=== PATIENT | female | born 1995 | race Caucasian/White ===

== ENCOUNTER 2020-10-13 17:57 | Emergency (ER) | payer BC, OTHER ==
--- NOTE | 2020-10-13 20:07 | EDM.PDOC ---
ED HPI GENERAL MEDICAL PROBLEM - General Chief Complaint: PUBLIC HEALTH DOCTOR Problem Stated Complaint: 5 WEEKS PREG CRAMPING AND BLEEDING Time Seen by Provider: 10/13/20 19:51 Source of Information: Reports: Patient, Family () History Limitations: Reports: No Limitations - History of Present Illness INITIAL COMMENTS - FREE TEXT/NARRATIVE: Mrs. Elliott is a very pleasant 24-year-old woman who now presents the ED stating that she underwent in vitro fertilization on 09/22/2020, with subsequent positive home test. She states that she developed suprapubic pelvic cramps and vaginal bleeding last night, 10/12/2020. Initially she had actual bleeding, which has since become spotting, however, the pelvic cramps have persisted. Her pain feels better if she lies in the left decubitus position, worse if she is laughing. She also states that she developed the sensation of urinary urgency around 15:00 this afternoon. No prior similar symptoms. She is G1, P0. Here in the ED, the patient is found to be hemodynamically stable, afebrile, saturating 100% on room air. She appears to be relatively comfortable, in no acute distress. Prior to last night, the patient denies having a recent fever, chills, sore throat, ear pain, nasal or sinus congestion, cough, dyspnea, chest pain, palpitations, nausea, vomiting, constipation, diarrhea, abdominal pain, urinary symptoms, recent weight gain or weight loss, recent bloody bowel movements or black bowel movements, recent joint aches, headaches, or rashes. The patient does not have a PCP. Her Reproductive Endocrinology and Fertility specialist is Dr. Jacquelyn Worthy, at [place], [place]. She has not received a COVID vaccination. Pelvic Pain Score (Numeric/FACES): 4 - Related Data Allergies Allergy/AdvReac Type Severity Reaction Status Date / Time No Known Allergies Allergy Verified 10/13/20 18:39 Home Meds: Home Meds . [No Known Home Meds] 10/13/20 [History] Past Medical History PUBLIC HEALTH DOCTOR History: Reports: Polycystic Ovaries - Past Surgical History HEENT Surgical History: Reports: Myringotomy w Tube(s) (bilateral), Oral Surgery (dental implant) Female Surgical History: Reports: Other (See Below) (Egg retrieval and implantation) Social & Family History - Tobacco Use Tobacco Use Status *Q: Never Tobacco User - Alcohol Use Alcohol Use History: No - Recreational Drug Use Recreational Drug Use: No - Living Situation & Occupation Living situation: Reports: , with Spouse Occupation: Unemployed ED ROS GENERAL - Review of Systems Review Of Systems: Comprehensive ROS is negative, except as noted in HPI. ED EXAM - Physical Exam Exam: See Below Exam Limited By: No Limitations General Appearance: Alert, WD/WN, No Apparent Distress Eye Exam: Bilateral Eye: EOMI, Normal Inspection Ears: Normal External Exam, Hearing Grossly Normal Nose: Normal Inspection Throat/Mouth: Normal Inspection, Normal Lips, Normal Voice, No Airway Compromise Head: Atraumatic, Normocephalic Neck: Normal Inspection, Full Range of Motion Respiratory/Chest: No Respiratory Distress, Lungs Clear, Normal Breath Sounds, No Accessory Muscle Use Cardiovascular: Normal Peripheral Pulses, Regular Rate, Rhythm, No Edema, No Gallop, No JVD, No Murmur, No Rub GI/Abdominal Exam: Normal Bowel Sounds, Soft, No Organomegaly, No Distention, No Abnormal Bruit, No Mass, Tender (Suprapubically only. Nontender elsewhere.) (Female) Exam: Other (Cervical os closed. Small amount of blood at the cervical os, but no active bleeding. No vaginal lesions.) Back Exam: Normal Inspection, Full Range of Motion, NT Extremities: Normal Inspection, Normal Range of Motion, No Pedal Edema, Normal Capillary Refill Neurological: Alert, Oriented, Normal Cognition, No Motor/Sensory Deficits Psychiatric: Normal Affect Skin Exam: Warm, Dry, Intact, Normal Color, No Rash Course - Vital Signs Last Recorded V/S: Last Vital Signs Temp 36.7 C 10/13/20 18:34 Pulse 91 10/13/20 18:34 Resp 18 10/13/20 18:34 BP 122/71 10/13/20 18:34 Pulse Ox 100 10/13/20 18:34 - Orders/Labs/Meds Orders: Active Orders 24 hr Category Date Time Status OB Transvaginal [US] Stat Exams 10/13/20 19:54 Taken Labs: Laboratory Tests 10/13/20 10/13/20 10/13/20 Range/Units 20:10 20:15 20:15 WBC 14.84 H (3.98-10.04) K/mm3 RBC 4.61 (3.98-5.22) M/mm3 Hgb 13.3 (11.2-15.7) gm/dl Hct 41.1 (34.1-44.9) % MCV 89.2 (79.4-94.8) fl MCH 28.9 (25.6-32.2) pg MCHC 32.4 (32.2-35.5) g/dl RDW Std Deviation 43.9 (36.4-46.3) fL Plt Count 374 H (182-369) K/mm3 MPV 10.0 (9.4-12.3) fl Neutrophils % (Manual) 70 H (40-60) % Band Neutrophils % 0 (0-10) % Lymphocytes % (Manual) 27 (20-40) % Atypical Lymphs % 0 % Monocytes % (Manual) 3 (2-10) % Eosinophils % (Manual) 0 L (0.7-5.8) % Basophils % (Manual) 0 L (0.1-1.2) Toxic Granulation Few Platelet Estimate Adequate RBC Morph Comment Normal Sodium 139 (136-145) mEq/L Potassium 3.8 (3.5-5.1) mEq/L Chloride 104 (98-107) mEq/L Carbon Dioxide 23 (21-32) mEq/L Anion Gap 15.8 H (5-15) BUN 8 (7-18) mg/dL Creatinine 0.6 (0.55-1.02) mg/dL Est Cr Clr Drug Dosing 123.77 mL/min Estimated GFR (MDRD) > 60 (>60) mL/min BUN/Creatinine Ratio 13.3 L (14-18) Glucose 85 (70-99) mg/dL Calcium 8.5 (8.5-10.1) mg/dL Total Bilirubin 0.2 (0.2-1.0) mg/dL AST 19 (15-37) U/L ALT 31 (14-59) U/L Alkaline Phosphatase 82 (46-116) U/L Total Protein 7.6 (6.4-8.2) g/dl Albumin 3.0 L (3.4-5.0) g/dl Globulin 4.6 gm/dL Albumin/Globulin Ratio 0.7 L (1-2) HCG, Quant 6734.0 mIU/mL Urine Color Yellow (Yellow) Urine Appearance Clear (Clear) Urine pH 6.0 (5.0-8.0) Ur Specific Gomer 1.025 (1.005-1.030) Urine Protein Negative (Negative) Urine Glucose (UA) Negative (Negative) Urine Ketones 2+ H (Negative) Urine Occult Blood 3+ H (Negative) Urine Nitrite Negative (Negative) Urine Bilirubin Negative (Negative) Urine Urobilinogen 0.2 (0.2-1.0) Ur Leukocyte Esterase Negative (Negative) Urine RBC 5-10 H (0-5) /hpf Urine WBC 0-5 (0-5) /hpf Ur Squamous Epith Cells 5-10 H (0-5) /hpf Urine Bacteria Many H (FEW) /hpf Urine Mucus Moderate H (FEW) /hpf - Re-Assessments/Exams Free Text/Narrative Re-Assessment/Exam: 10/13/20 20:03 As above, the patient developed pelvic cramps and vaginal spotting last night, in the setting of being approximately 5 weeks gestation following in vitro fertilization on 09/22/2020. The pelvic cramps have been waxing and waning, and she feels better if she lies in the left decubitus position, worse with laughing. On physical exam, she has some suprapubic tenderness, otherwise, her examination is unremarkable. I have ordered a work-up that includes several blood tests, a urinalysis by clean-catch, and a transvaginal ultrasound. The patient will be taken to our gynecology examination room so that I can inspect her cervix. 10/13/20 21:14 On pelvic examination, the cervical os is closed. There is a small amount of blood at the cervical os, but no active bleeding. No vaginal lesions seen. 10/13/20 21:31 The patient's CBC is remarkable for leukocytosis of 14.84, but with only 1% bandemia, and thrombocytosis of a hundred seventy-four thousand, with remainder of her CBC being unremarkable. Her CMP is unremarkable. Her quantitative hCG is six thousand seven hundred thirty-four. Her urinalysis is remarkable for 3+ occult blood with 5-10 RBCs, leukocyte esterase negative with 0-5 WBCs, nitrate negative with many bacteria, and 5-10 squamous epithelial cells. Transvaginal ultrasound is read by Sha as: 1. Early . 2. Subchorionic hemorrhage. 09/04/21 22:26 Test results discussed with the patient and her . Today's work-up is essentially as expected, however, I would like to discuss her case with one of her infertility specialist at [facility]. Case discussed with [facility] at 22:23. They will call me back. 10/13/20 22:27 Ultrasound images pushed to [facility] at this time. 10/13/20 23:32 Called back by [facility] at 23:24. Case discussed with Dr Jacquelyn Worthy, Reproductive Endocrinology and Fertility specialist at [facility], at 23:29. She stated that, while alarming to the patient, bleeding following in vitro fertilization does not incur a higher risk of miscarriage. She recommended that the patient continue her current medications, stay adequately hydrated, and rest. Someone from her office will contact the patient on Thursday. In the meantime, however, the patient should be aware that she can page one of the infertility specialist at any time. 10/13/20 23:37 The above was relayed to the patient and her . Departure - Departure Time of Disposition: 23:38 Disposition: Home, Self-Care 01 Condition: Good Clinical Impression: Vaginal bleeding in - Discharge Information *PRESCRIPTION DRUG MONITORING PROGRAM REVIEWED*: Not Applicable *COPY OF PRESCRIPTION DRUG MONITORING REPORT IN PATIENT RUTH: Not Applicable Referrals: Jacquelyn Worthy MD [Primary Care Provider] - Forms: ED Department Discharge Additional Instructions: You were seen in the emergency room after developing pelvic cramps and vaginal bleeding last night, in the setting of early . Work-up in the ER included several blood tests, a urinalysis, and a transvaginal ultrasound. Your quantitative hCG ( hormone) was 6734, which is consistent with your degree of . The pelvic ultrasound found a subchorionic bleed. Your case was discussed with your Reproductive Endocrinology and Fertility specialist, Dr. Jacquelyn Worthy, who wanted me to reassure you that vaginal bleeding at this stage of does not confer an increased risk of miscarriage. Someone from her clinic will contact you this coming 09/14/2020. In the meantime, if any problems arise, you may contact them. If any other problems, please do not hesitate to return to the ER. Sepsis Event Note (ED) - Evaluation Sepsis Screening Result: No Definite Risk - Focused Exam Vital Signs: Vital Signs Temp Pulse Resp BP Pulse Ox 10/13/20 18:34 36.7 C 91 18 122/71 100 - My Orders Last 24 Hours: My Active Orders 10/13/20 19:54 OB Transvaginal [US] Stat - Assessment/Plan Last 24 Hours: My Active Orders 10/13/20 19:54 OB Transvaginal [US] Stat
--- NOTE | 2020-10-14 06:58 | US ---
First trimester obstetrical ultrasound: Multiple real-time images were obtained transvaginally. Comparison: No prior study available for current . Dates: Working AMY: 06/10/21, gestational age 5 weeks 5 days Current ultrasound: AMY 06/12/21, gestational age 5 weeks 3 days Single intrauterine gestational sac is seen. pole is noted. is too early to get good visualization of the crown rump length. Small amount of free fluid is seen within the cul-de-sac. Minimal subchorionic hemorrhage is seen. Measurements: Gestational sac: 0.94 cm - 5 weeks 3 days Impression: 1. Single intrauterine gestational sac. too early to visualize crown rump length. Dates as noted above. 2. Minimal subchorionic hemorrhage. 2. Minimal free fluid is noted within the cul-de-sac. Diagnostic code #2 I agree with preliminary report from mariaa, finalized on 10/13/20, 10:26 PM CDT, #1
== END 2020-10-13 23:49 | disposition home or self-care (01) ==
LOC: JD.ED 17:57
DX: O20.9 Hemorrhage in early pregnancy, unspecified (principal); Z3A.01 Less than 8 weeks gestation of pregnancy
CPT/HCPCS: 36415; 76817; 76817-26; 80053; 81001; 84702; 85007; 85027; 99284; 99284-25